=== PATIENT | female | born 1990 | race Caucasian/White ===

== ENCOUNTER 2019-04-19 03:28 | Inpatient (IN) | payer MEDICAID ==
[~2019-04-19] VITALS: Ht 162.6 cm; Wt 49.9 kg
[2019-04-19 03:40] VITALS: BP_SYST 108
--- NOTE | 2019-04-19 03:42 | NUR ---
Patient to ER bed 6 to gown for evaluation. Side rails up.
--- NOTE | 2019-04-19 03:45 | NUR ---
Pt C/O abdominal pain x 2 days, nausea, vomiting and blood in stool. Pt states she has hx of ovarian cysts and reports having sex 2 days ago shortly before symptoms started. Pt took Tylenol and Zofran for her symptoms with minimal relief. Denies any other symptoms, will continue to monitor.
--- NOTE | 2019-04-19 03:49 | NUR ---
ER Dr. Monroy at bedside examining patient.
--- NOTE | 2019-04-19 03:59 | NUR ---
patient was moved to bed 7
[2019-04-19] MEDS ORDERED: ONDANSETRON HCL 4 MG/2 ML VIAL IVP ONE (04:00)
[2019-04-19] MEDS ORDERED: MORPHINE 4 MG/ML INJ. SYRINGE IVP ONE (04:00)
--- NOTE | 2019-04-19 04:05 | NUR ---
# 20 gauge angiocath placed to LT AC. Use of asceptic technique. Opsite placed over site. Blood return noted. Blood for lab drawn from site. Flushed with 10 cc of normal saline. No evidence of infiltration noted. Patient tolerated well.
[2019-04-19 04:15] LABS: BILIRUBIN,URINE 1+ (NEGATIVE); BLOOD, URINE NEGATIVE (NEGATIVE); CLARITY/URINE CLEAR (CLEAR); COLOR,URINE YELLOW (YELLOW); GLUCOSE,URINE NEGATIVE (NEGATIVE); KETONES,URINE 3+ (NEGATIVE); LEUKOCYTE ESTERASE ,URINE NEGATIVE (NEGATIVE); NITRITE, URINE NEGATIVE (NEGATIVE); PROTEIN URINE 1+ (NEGATIVE)
--- NOTE | 2019-04-19 04:15 | NUR ---
Pt has been medicated for nausea and pain, no adverse effects noted at this time. Will continue to monitor.
[2019-04-19 04:20] LABS: BACTERIA,URINE FEW /HPF (None Seen); HYALINE CASTS, URINE 0-10 /LPF (None Seen); RBC,URINE 0-3 /HPF (0-3); WBC,URINE 0-3 /HPF (0-3)
[2019-04-19 04:20] LABS: BASOPHILS % (AUTO) 0.2 % (0.0-2.0); EOSINOPHILS % (AUTO) 0.1 % (0.0-4.0); HEMATOCRIT 45.1 % (36-48); HEMOGLOBIN 15.2 g/dL (12.0-16.0); LYMPHOCYTES # (AUTO) 1.7 K/uL (1.0-5.5); LYMPHOCYTES % (AUTO) 12.5 % (20.5-51.5); MEAN CORPUSCULAR HEMOGLOBIN 30 pg (27-31); MEAN CORPUSCULAR HGB CONC 34 % (32-36); MEAN CORPUSCULAR VOLUME 88 fL (79.0-98.0); MONOCYTES # (AUTO) 1.4 K/uL (0.0-1.0); MONOCYTES % (AUTO) 10.2 % (1.7-9.3); NEUTROPHILS # (AUTO) 10.5 K/uL (1.8-7.7); PLATELET COUNT (AUTO) 282 K/uL (130-430); RED BLOOD CELL COUNT(AUTO) 5.13 MIL/uL (4.2-6.2); RED CELL DISTRIBUTION WIDTH 13.1 % (9.0-15.0); WHITE BLOOD COUNT (AUTO) 13.6 K/uL (4.8-10.8)
--- NOTE | 2019-04-19 04:28 | NUR ---
Pelvic exam performed by Dr. Monroy with Thea JEFFERY at bedside for entire examination. Patient tolerated procedure well. Patient assisted to position of comfort after examination.
[2019-04-19 04:30] LABS: CALCIUM 9.4 mg/dL (8.4-11.0); CREATININE 0.74 mg/dL (0.55-1.30); POTASSIUM 3.7 mmol/L (3.5-5.1)
[2019-04-19 04:35] LABS: ALBUMIN 3.9 g/dL (3.4-4.8); TOTAL BILIRUBIN 1.2 mg/dL (0.0-1.0)
--- NOTE | 2019-04-19 05:09 | NUR ---
Dr. Monroy at bedside discussing diagnosis with patient and her family
[2019-04-19] MEDS ORDERED: DOXYCYCLINE HYCLATE 100 MG in D5W 100 ML IV ONE (05:30)
[2019-04-19] MEDS ORDERED: DOXYCYCLINE HYCLATE 100 MG VIAL IV ONE ×2 (05:37→05:49)
--- NOTE | 2019-04-19 05:43 | NUR ---
Pt is resting in bed, no acute distress at this time. Blood cultures have been collected and antibiotics running at this time. Will continue to monitor.
--- NOTE | 2019-04-19 06:07 | NUR ---
Radiology at bedside for ultrasound.
[2019-04-19] MEDS ORDERED: IBUP-1969 PO (06:36)
[2019-04-19] MEDS ORDERED: MINO100T3 PO (06:36)
--- NOTE | 2019-04-19 06:36 | NUR ---
Thea JEFFERY at bedside during transvaginal portion of ultrasound.
--- NOTE | 2019-04-19 06:37 | NUR ---
Medication reconciliation completed with information provided by patient
--- NOTE | 2019-04-19 06:59 | NUR ---
Pt tolerated ultrasound well, will continue to monitor.
--- NOTE | 2019-04-19 07:05 | NUR ---
Report from Thea JEFFERY & Rey JEFFERY
--- NOTE | 2019-04-19 07:10 | NUR ---
Patient awake and sitting up in [facility]
--- NOTE | 2019-04-19 09:30 | NUR ---
Patient alert and awake sitting up in [facility]. Patient requested to eat. I informed pt to wait until ER or OB MD discuss tx with p[t, Made Dr. Higurea aware.
[2019-04-19] MEDS ORDERED: OXYCODONE/ACETAMINOPHEN 5-325 TABLET PO PRN (10:30)
[2019-04-19] MEDS ORDERED: PIPERACILLIN/TAZO 3.375/DEX-IS 50 ML IV ONE (10:30)
[2019-04-19] MEDS: OXYCODONE/ACETAMINOPHEN 5-325 TABLET PO PRN ×2 (10:37→22:23)
[2019-04-19] MEDS ORDERED: OXYCODONE/ACETAMINOPHEN 5-325 TABLET ONE (10:44)
[2019-04-19 10:54] LABS: AMYLASE 21 U/L (0-100); LIPASE 65 U/L (73-393)
--- NOTE | 2019-04-19 11:04 | NUR ---
Patient will be admitted to care of Dr. Kuldeep Dawn. Admitted to MS unit. Will go to room 129B. Belongings list completed. Summary report printed. Telephone Report given to Afua JEFFERY.
--- NOTE | 2019-04-19 11:14 | NUR ---
ADMISSION NOTE Received patient from ER via lan, received report from VIVIANA JEFFERY. Patient admitted with diagnosis of TUBO OVARIAN ABCESS. Patient oriented to hospital routine, call light, toileting and safety-patient verbalized understanding.
[2019-04-19 11:32] VITALS: BP_SYST 141
[2019-04-19 11:38] VITALS: BP_SYST 141
[2019-04-19] MEDS ORDERED: metroNIDAZOLE 500 mg/NS 100 ML IV SCH ×2 (12:00→18:00)
[2019-04-19] MEDS ORDERED: metroNIDAZOLE 500 mg/NS 100 ML IV ONE (12:35)
[2019-04-19] MEDS: D5LR 1,000 ML IV SCH ×2 (12:39→20:30)
--- NOTE | 2019-04-19 13:56 | NUR ---
Dr Dawn was here and seen pt.
--- NOTE | 2019-04-19 15:40 | NUR ---
Dr Ye here and spoke with pt. Visitor at bedside.
[2019-04-19] MEDS ORDERED: GENTAMICIN SULFATE 350 MG in NS 100 ML IV SCH (17:00)
[2019-04-19] MEDS ORDERED: PIPERACILLIN/TAZO 3.375/DEX-IS 50 ML IV SCH (18:00)
[2019-04-19 19:00] VITALS: BP_SYST 117
--- NOTE | 2019-04-19 19:15 | NUR ---
change of shift.p.presents quiescent affect.pt.presents:technical illustrator issues;transovarian cysts.;technical illustrator to assess the pt.in the am; 04/20/19 to proceed w/ surgery or not.iv fluids infusing.pt.had recieved the administration of percocet;5/325mg po:pain w/in the shift.pt had apprised nsg; shift that the percocet had produced somnolence.pt.had requested mild medication;ibuprophen to page to f/u.general status stable.respiratory status stable.call light/telephone w/in the reach of the pt.family@bedside.
--- NOTE | 2019-04-19 19:32 | NUR ---
CLOSING NOTES, PT HAS BEEN STABLE, NO C/O PAIN, ALL IV ABX GIVEN. GIVEN REG DIET. PT WILL BE NPO AFTER MN , AWAITING TO BE SEEN BY DR PAEZ TO ASSESS IF PT NEEDS SURGERY OR JUST NEED IV ABX. ENDORSED TO NIGHT RN.
--- NOTE | 2019-04-19 19:58 | NUR ---
PageSaravanan Oakley Dr. s/w Taryn. LATIA Mosley spoke to the doctor.
[2019-04-19 20:00] VITALS: BP_SYST 117
--- NOTE | 2019-04-19 20:00 | NUR ---
pt.assessed.v/s assessed;values w/in normal limits.i have apprised the pt.that ;admitting has been paged re;pain medication.i have apprised the pt.that snacks/beverages are available until;midnight.pt.had requested consumme.i have provided the consumme.i have assessed the iv access; intact;patent iv fluids infusing.pt.capable to reposition self.call
[2019-04-19] MEDS ORDERED: IBUPROFEN 800 MG TABLET PO PRN (20:30)
[2019-04-19] MEDS ORDERED: ONDANSETRON HCL 4 MG/2 ML VIAL IVP PRN (20:30)
--- NOTE | 2019-04-19 20:30 | NUR ---
greg lopez returned the page.i apprised of the pt's status.pt.had requested mild pain medication;ibuprophen; ordered ibuprophen;800mg po tid/prn.;mild pain, ordered zofran;4mg ivp;q-6hrs;nausea.ordered; restoril;15mg po;q-hs/p;sleep.
[2019-04-19] MEDS: CLINDAMYCIN 900 MG in D5W 100 ML IV SCH (20:42)
[2019-04-19] MEDS ORDERED: TEMAZEPAM 15 MG CAPSULE PO SCH (21:00)
--- NOTE | 2019-04-19 21:00 | NUR ---
2100pmedications administered;i have administered;ibuprophen;800mg po initial dose;to f/u ra;pain medication efficacy. i have administered zofran;4mg ivp.to f/u re;medication efficacy.no additional requested @this hour.
--- NOTE | 2019-04-19 22:00 | NUR ---
pt.assessed.pt.presents quiescent affect;calm.pt.presents stable status.general.respiratory status stable;unlabored. iv acces intact;patent.iv fluids infusing.no requests;posited @this hour.pt.presents snacks;beverages from outside the hospital.pt.capable to reposition self.visitors@this bedside.call light/telephone w/in the reach of the pt.
--- NOTE | 2019-04-20 | NUR ---
pt.assessed v/s assessed;values w/in normal limits.no c/o pain,nausea.i have reiterate to the pt.the diet status conversion;npo. awaiting 's assessment in am.04/20/19.surgery or not.i have placed the red-cone;alert;npo:i have apprised the pt of the red-cone indication.general status stable.respiratory status stable.call light/telephone w/in the reach of the pt.
[2019-04-20] MEDS ORDERED: TEMAZEPAM 15 MG CAPSULE PO PRN (00:30)
[2019-04-20 00:33] VITALS: BP_SYST 122
--- NOTE | 2019-04-20 02:00 | NUR ---
pt.assessed pt.presents quiescent affect;calm,somnolent.visitor in the room.i have assessed the iv acces;intact;patent. pt.capable to reposition self.general status stable.respiratory status stable.call light/telephone w/in the reach of the pt.
--- NOTE | 2019-04-20 04:00 | NUR ---
pt.assessed.pt.preset quiescent affect;calm.resting.latonia,antonia have apprised the pt.that genital swab:chlamydia is to be performed per 's order.pt.has submitted to the swab;lab had apprised me that the mrsa;nares swab had yet to be collected.latonia has collected the mrsa swab.general status stable.respiratory status stable.call light telephone w/in the reach of the pt.
--- NOTE | 2019-04-20 04:00 | NUR ---
VAGINAL SWAB: PRIMARY RN NGUYEN CAME AND REQUESTED TO COLLECT VAGINAL SWAB FROM THE PT ; WENT TO PT ROOM AND EXPLAINED TO THE PT PROCEDURE , PT STATED DAY SHIFT RN WAS ALREADY COLLECTED IT YESTERDAY ,WENT TO PRIMARY RN AND NOTIFIED ; RN CALLED AND TALKED WITH LAB ANDREW AND FOUND OUT THAT CHLAMYDIA CULTURE IS NOT COLLECTED , I ALSO 5TALKED WITH ANDREW FROM LAB PER HER IT NOT COLLECTED YET . PRIMARY RN WENT AND TO PT ROOM AND EXPLAINED ; ISREAL JEFFERY AND GAUTAM RN WENT AND EXPLAINED THE PROCEDURE ; PT AGREED TO DO IT ; SWAB COLLECTED PER PROTOCOL , PT TOLERATED WELL ; MRSA OF NARES SWAB ALSO COLLECTED ; BOTH SPECIMENS GAVE IT TO PRIMARY RN .
[2019-04-20] MEDS: CLINDAMYCIN 900 MG in D5W 100 ML IV SCH (05:17)
[2019-04-20] MEDS: D5LR 1,000 ML IV SCH (05:17)
--- NOTE | 2019-04-20 06:28 | NUR ---
pt.ASSESSED.PT.PRESENTS QUIESCENT AFFECT;CALM,SOMNOLENT.IV FLUIDS INFUSING.NO C/O PAIN,NAUSEA.GENERAL STATUS STABLE.RESPIRATORY STATUS STABLE.PT.CAPABLE TO REPOSITION SELF.CALL LIGHT/TELEPHONE W/IN THE REACH OF THE PT. Addendum: 04/20/19 at 0635 by Dimitri Denis RN family member:mother present.
[2019-04-20 08:00] VITALS: BP_SYST 122
--- NOTE | 2019-04-20 08:00 | NUR ---
RN OPENING NOTE PATIENT IS RESTING IN BED, ALERT ORIENTED X4 , DENIES PAIN OR DISCOMFORT. PATIENT WAS ASSESSED VITAL SIGNS ARE STABLE. PATIENT'S BED AT LOW POSITION AND CALL LIGHT WITHIN REACH, WILL CONTINUE TO MONITOR.
--- NOTE | 2019-04-20 10:00 | NUR ---
RN NOTE PATIENT WAS EDUCATED ABOUT HER DISEASE SIGNS AND SYMPTOMS. ABOUT FALL PREVENTION, FAMILY BY THE BED SIDE VERBALIZED UNDERSTANDINGS
--- NOTE | 2019-04-20 10:21 | NUR ---
Nutrition Update Pedro Scale 18 noted. Pt admitted for tuboovarian abscess. Diet: NPO (04/20 Breakfast), regular (04/19 Dinner), clear liquid (04/19 Lunch) -- 3 active diet orders BMI: 18.9 kg/m2 RD to follow per nutrition care standards.
--- NOTE | 2019-04-20 12:00 | NUR ---
RN NOTE PATIENT WILL BE SEEN BY HER NURSING PROGRAM COORDINATOR SOON, PATIENT HAS NO ISSUE
[2019-04-20 12:17] VITALS: BP_SYST 123
[2019-04-20] MEDS ORDERED: OXYC-580 PO (12:45)
[2019-04-20] MEDS ORDERED: DOXY100C PO (12:46)
--- NOTE | 2019-04-20 13:15 | NUR ---
RN CLOSING NOTE PATIENT WAS EDUCATED ABOUT HER CONDITION. HEP LOCK WAS REMOVED FROM HER LEFT AC. PATIENT WILL BE DISCHARGED HOME. PATIENT D/C INFORMATION WAS DISCUSSED WITH HER AND HER FATHER, PRESCRIPTIONS WERE GIVEN TO THE PATIENT. INSTRUCTION ABOUT SETTING AN APPOINTMENT WAS DISCUSSED WITH THE PATIENT. PATIENT AND FATHER VERBALIZED UNDERSTANDING, PATENT WAS WHEELED TO THE PARKING LOT BY ME WHERE SHE GOT INTO HER FATHER TRUCK AND HERE i SIGN OFF PATIENT'S CARE.
== END 2019-04-20 13:20 | disposition home or self-care (01) | DRG 531 ==
LOC: SED 03:28 → STU 10:26 → SMU 13:39
PROVIDERS: ADMIT Obstetrics & Gynecology; ATTEND Obstetrics & Gynecology
DX: N70.93 Salpingitis and oophoritis, unspecified (principal); F12.90 Cannabis use, unspecified, uncomplicated; N83.209 Unspecified ovarian cyst, unspecified side; N94.10 Unspecified dyspareunia; N94.6 Dysmenorrhea, unspecified
CPT/HCPCS: 36415; 76830-TC; 76857; 80053; 80170-TC; 81000-TC; 81025; 82150-TC; 83690-TC; 85025; 87040-TC; 87081; 87081-TC; 87110; 96365; 96375; 99285; J1580; J2270; J2405; J2543; J3490; J7060; J7120